=== PATIENT | female | born 1990 | race Caucasian/White ===

== ENCOUNTER 2022-06-05 14:00 | Outpatient (RCR) | payer MEDICAID ==
[~2022-06-05 14:00] MED LIST: CLINDAMYCIN HC300 MG PO; CLINDAMYCIN300 MG PO; IBU800 M1 PO; IBUPROFEN200 M2 PO; MOTRIN800 MG PO; NORCO 325 MG-51 TA1 PO; NORCO 325 MG-51 TAB PO; PERCOCET 325 MG1 TA4 PO; PROVERA10 MG PO
== END 2022-06-13 | disposition home or self-care (01) ==
LOC: OT
DX: M25.531 Pain in right wrist (principal); M25.532 Pain in left wrist

== ENCOUNTER → 2022-08-21 | Outpatient (CLI) | payer MEDICAID | LOC: LAB 17:40 | DX: J02.9 Acute pharyngitis, unspecified (principal) ==